=== PATIENT | female | born 1985 | race Caucasian/White ===

== ENCOUNTER 2017-01-06 12:50 | Emergency (ER) | payer BC ==
[~2017-01-06] VITALS: Ht 162.6 cm; Wt 56.0 kg
[2017-01-06 12:55] VITALS: BP 101/66
[2017-01-06 14:23] LABS: HEMOGLOBIN 13.4 g/dL (11.7-16.4); WHITE BLOOD COUNT 8.6 x10^3/uL (3.4-10)
== END 2017-01-06 15:50 | disposition home or self-care (01) ==
LOC: ED 15:30
DX: O20.0 Threatened abortion (principal); Z3A.01 Less than 8 weeks gestation of pregnancy
CPT/HCPCS: 36415; 76801; 84702; 85025; 86901; 99285